=== PATIENT | male | born 1990 | race Caucasian/White ===

== ENCOUNTER 2016-11-02 19:28 | Emergency (ER) | payer OTHER ==
[~2016-11-02] VITALS: Ht 182.8 cm; Wt 93.0 kg
[~2016-11-02 19:28] MED LIST: ALBUTEROL0.09 MG/A2 IH; ASPIRIN ADULT L81 M2 PO; ATIVAN1 MG PO; ATORVASTATIN CA80 M1 PO; CYCLOBENZAPRINE10 MG PO; DEXTROAMPH SACC10 M1 PO; GINKGO BILOBA60 M3 PO; GINSENG520 MG PO; KEFLEX500 M1 PO; KELP1 TAB PO; LEVOFLOXACIN500 MG PO; LORAZEPAM0.5 MG PO; MACA PO; MOTRIN800 MG PO; NAPROSYN500 MG PO; PROBIOTIC PO; PYRIDIUM200 M1 PO; TYLENOL ES500 MG PO; ULTRAM50 MG PO; VITAMIN B PO; VITAMIN D3; VITAMINB12; VITAMIND3; [UNRECOGNIZED DRUG - OTHER] PO
[2016-11-02 19:30] VITALS: BP 160/64
[2016-11-02] MEDS ORDERED: ATIVAN0.5 MG PO (19:35)
== END 2016-11-02 22:25 | disposition home or self-care (01) ==
LOC: ED 19:28
DX: F45.8 Other somatoform disorders (principal); F41.9 Anxiety disorder, unspecified; I48.91 Unspecified atrial fibrillation; Z90.89 Acquired absence of other organs; Z86.2 Personal history of diseases of the blood and blood-forming organs and certain disorders involving the immune mechanism

== ENCOUNTER → 2018-04-02 | Outpatient (CLI) | payer OTHER ==
[~2018-04-02] MED LIST changes: +ATIVAN0.5 MG PO
[2018-04-02 10:58] LABS: HEMATOCRIT 44.7 % (42.0-52.0); HEMOGLOBIN 15.5 g/dl (14.0-18.0); MEAN CELL VOLUME 88.9 fl (80.0-94.0); MEAN CORPUSCULAR HGB 30.8 pg (27.0-31.0); MEAN CORPUSCULAR HGB CONC 34.7 g/dl (33.0-37.0); MEAN PLATELET VOLUME 12.6 fl (9.6-12.3); RED BLOOD COUNT 5.03 10*6/uL (4.50-5.90); RED CELL DISTRI WIDTH 11.9 % (0-14.5); WHITE BLOOD COUNT 5.2 10*3/uL (4.8-10.8)
[2018-04-02 11:23] LABS: ALBUMIN 4.7 gm/dl (3.1-4.5); ALKALINE PHOSPHATASE 68 U/L (45-117); BUN 15 mg/dl (7-24); CHLORIDE 105 mmol/L (98-107); SGOT/AST 16 IU/L (3-35); SGPT/ALT 26 U/L (12-78); SODIUM 141 mmol/L (136-145); TOTAL PROTEIN 7.8 gm/dL (6.4-8.2)
[2018-04-03 08:11] LABS: HEPATITIS B SURFACE AB 006395 Non Reactive (.); HEPATITIS B SURFACE AG Negative (Negative); HEPATITIS C VIRUS ANTIBODY <0.1 s/co (0.0-0.9)
[2018-04-03 16:08] LABS: RUBEOLA AB IGG 096560 <25.0 AU/mL (Immune >29.9); VARICELLA-ZOSTER IGG 096206 542 index (Immune >165)
== END | disposition home or self-care (01) ==
LOC: LAB 10:32
PROVIDERS: Family Medicine
DX: Z02.1 Encounter for pre-employment examination (principal)

== ENCOUNTER 2018-08-22 21:00 | Inpatient (IN) | payer SELFPAY ==
[~2018-08-22] VITALS: Ht 182.8 cm; Wt 96.2 kg
--- NOTE | ~2018-08-22 | PR ---
[place], [place] PROGRESS NOTE [facility]: [facility]INGS [id number] UNIT #: [id number] ROOM: 406 DOCTOR: SLOAN POPE MD BIRTHDATE: [birth year] DOS: 08/24/2018 CARDIOLOGY PROGRESS NOTE The patient was seen at his bedside today 08/24/2018 for followup of an electrocardiographic abnormality. SUBJECTIVE: The patient is a 27-year-old man who had atrial fibrillation as a pre-teen and did undergo 2 ablations. I saw him when he presented to the hospital in 2016 with palpitations and chest pain. His electrocardiogram was normal, but his troponin was elevated. A stress test and echo were both normal. It was felt that he had a mild myocarditis that resolved spontaneously. He presents to the hospital on this occasion with a viral syndrome including nausea and vomiting. At this time, his troponins are normal, but his EKG did show significant nonspecific ST and T-wave changes, which were not present 2 years ago. The patient states that he does feel much better today. He is almost back to baseline. He has no further nausea or vomiting. PHYSICAL EXAMINATION: VITAL SIGNS: His pulse is 60 and regular, blood pressure is 112/56. He is afebrile. NECK: Supple. He has no jugular distention. Carotids are full. LUNGS: Respirations are unlabored. Chest is clear. HEART: Has a regular rhythm without murmur, rub or gallop. ABDOMEN: Benign. EXTREMITIES: Showed no edema. He was undergoing an echocardiogram when I walked into the room. My preliminary look at the echo showed normal left ventricular size and wall motion with normal ejection fraction. There is no significant pericardial effusion present. Sed rate is 16. A repeat EKG done yesterday showed sinus rhythm and was a normal study. The ST and T-wave changes present on admission had resolved. IMPRESSION: 1. Abnormal electrocardiogram. This was probably due to hyperventilation, vomiting, etc. It has resolved quickly. 2. History of probable myocarditis in 2016. The patient shows signs of complete recovery. 3. History of atrial fibrillation as a young teenager. The patient is status post ablation x 2. He does experience palpitations, but his heart monitor here in the hospital has been free of any significant arrhythmias aside from sinus bradycardia. 4. Family history of dilated cardiomyopathy. The patient's current echo shows normal left ventricular size, wall motion and function. [place], [place] PROGRESS NOTE NAME: MODESTA CUMMINGS JR UNIT #: [id number] ROOM: 406 DOCTOR: TOSHIA VEGA,SLOAN BIRTHDATE: [birth year] PLAN: I will review the echocardiogram in more detail once it is available. Assuming no surprises, I think he can be discharged to home with conservative management for his viral symptoms and no other cardiac workup. I thank the hospitalist physicians for asking our advice regarding his care. SLOAN POPE MD CM:PNTRANS [id number] SLOAN POPE MD 08/24/18 1026 interface
--- NOTE | ~2018-08-22 | EKG ---
[place], [place] ELECTROCARDIOGRAM REPORT NAME: MODESTA CUMMINGS JR UNIT #: [id number] ROOM: 406 DOCTOR: ART DRAFT REPORT BIRTHDATE: [birth year] [facility] Test Date: 2018-08-23 Test Time: 14:59:05 Pat Name: MODESTA CUMMINGS Department: Room: 406 2 Gender: M Auto Hiker: Federica Samano : 1990 Requested By: NORY VALDIVIA Order Number: [id number] Reading MD: Skyler Ziegler MD Measurements Intervals [place] Rate: 70 P: 44 HI: 131 QRS: 68 QRSD: 99 T: 26 QT: 429 QTc: 463 Interpretive Statements Sinus rhythm Compared to previous tracing, ST-T changes have resolved Electronically Signed On 08-24-2018 10:13:17 PDT by Skyler Ziegler MD CM:EKGRPT:ELECTROCARDIOGRAM REPORT 1459 1013 NORY ALEXANDER DRAFT REPORT NORY VALDIVIA DO
--- NOTE | ~2018-08-22 | CON ---
[employer], [place] REPORT OF CONSULTATION NAME: MODESTA CUMMINGS JR UNIT #: [id number] ROOM: 406 DOCTOR: SLOAN POPE MD BIRTHDATE: [birth year] DOS: 08/23/2018 CARDIOLOGY CONSULTATION REASON FOR CONSULTATION: Abnormal EKG. HISTORY OF PRESENT ILLNESS: The patient is a 27-year-old man who has a history of paroxysmal atrial fibrillation as a young teenager. He initially presented with fainting spells at age 16. He was evaluated at the [facility] where he was found to have paroxysmal atrial fibrillation. He did undergo cryoablation at age 17, but had recurrent atrial arrhythmias and therefore underwent a second ablation at age 18. He was treated with anticoagulants for a short-term, but these were stopped before he was 19 years of age. He was doing well until 11/2015 when he began having brief episodes of palpitations which were small resolved spontaneously. He also had a few episodes of chest pain. He did have an elevation in his troponin, but did not have a pattern that suggested an acute myocardial infarction. An echocardiogram showed normal left ventricular size and function and an exercise stress test showed no evidence for ischemia. He did have excellent exercise capacity. He was lost to our followup until now. He presented to the hospital with a 2-day history of feverishness, headache, nausea and vomiting of clear fluid. He did have some palpitations, but denied any sustained arrhythmias or syncope. He came into the hospital where an electrocardiogram was done and showed T-wave inversions in leads II, III, aVF and V3 through V6. When compared to the tracings that he had had in 12/2015, these EKG changes were all new and therefore he was hospitalized. It is interesting to note, however, that on this admission, his troponin levels are all normal. Chest x-ray is unremarkable. PAST MEDICAL HISTORY: Includes: 1. Atrial fibrillation documented at age 16, patient underwent ablations at age 17 and 18. He has not been on anticoagulants since age 19. 2. No history of diabetes, hypertension, myocardial infarction or stroke. 3. Former smoker, the patient quit about 4 years ago. 4. Echocardiogram 12/19/2015, normal left ventricular size, regional wall motion and systolic function with mild concentric left ventricular hypertrophy. No significant valve abnormality. 5. Exercise stress test 12/20/2015, 13 minutes 30 seconds Daniel protocol to 90% maximum predicted heart rate. No arrhythmias or ischemia. Nuclear perfusion imaging study showed ejection fraction of 65% and normal perfusion. 6. Holter monitor 01/08/2016, sinus rhythm with occasional PACs, but no SVT or VT and no ventricular arrhythmias. 7. Hospitalization 11/2015 with palpitations. The patient did have an elevation of troponin, but no other evidence for acute myocardial infarction. It was felt that he might have had a myocarditis which resolved. REVIEW OF SYSTEMS: The patient denies diplopia, loss of vision. He denies focal weakness. Denies lightheadedness or syncope. He does still feel tired and weak, but states that he feels a lot better than he did in the last 24 hours. He denies any nausea or vomiting at this time. He denies hemoptysis or hematemesis. He denies any recent weight change. He denies any focal weakness. [employer], [place] REPORT OF CONSULTATION NAME: EMILIANO HAIDERMODESTA Tejas UNIT #: [id number] ROOM: [facility] DOCTOR: SLOAN POPE MD BIRTHDATE: [birth year] He denies change in bowel or bladder habits. Denies blood in the stools or urine. He denies peripheral edema, orthopnea or PND. He denies heat or cold intolerance and denies polyuria or polydipsia. Remainder of the review of systems is negative except as noted above. FAMILY HISTORY: Several family members have had atrial fibrillation and one uncle had a cardiomyopathy along with his atrial fibrillation. The uncle from this. The patient is unclear as to what his cardiomyopathy was. MEDICATIONS PRIOR TO ADMISSION: Lorazepam 0.5 mg t.i.d. p.r.n. anxiety. ALLERGIES: The patient has no known drug allergies. 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 He does not smoke or consume significant amounts of alcohol. PHYSICAL EXAMINATION: GENERAL: The patient is a well-nourished white male who is awake, alert and oriented. VITAL SIGNS: Pulse is 65 and regular, blood pressure is 123/71. He is afebrile. He weighs 96.2 kg and has a body mass index of 28.8. HEENT: Normocephalic and atraumatic. Extraocular muscles are intact. Sclerae are clear. Pupils equal, round and react to light. The oral mucosa is moist. Tongue is midline. NECK: Supple. He has no jugular distention. Carotids are full and I heard no bruits. He had no neck or supraclavicular masses and no thyromegaly. LUNGS: Respirations are unlabored. His chest is clear to auscultation and percussion. He has no presacral edema or chest wall tenderness. HEART: Regular rhythm. He had a fourth heart sound, but no third heart sound. There was no murmur, rub or arrhythmia noted. The PMI was not displaced and there was no precordial heave, lift or thrill. ABDOMEN: Soft and normally active without masses, organomegaly or bruits. EXTREMITIES: Showed no edema. Pedal pulses are easily palpated bilaterally. There are no palpable cords and no Homans sign. LABORATORY DATA: I reviewed his electrocardiogram which showed sinus rhythm with inferior and lateral T-wave inversions which are new compared to 2016. Hemoglobin is 12.9, white count 11,500, platelet count 120,000. Sodium 137, potassium 4.2, chloride 106, CO2 is 24, BUN 11, creatinine 1.06. Total cholesterol 88, LDL 29, HDL 47, TSH 0.781. IMPRESSION: 1. Abnormal electrocardiogram. Etiology of this is not clear. The patient has a normal troponin level and normal electrolytes. He does not complain of chest pain, but he does seem to be recovering from a viral syndrome. 2. History of probable myocarditis in 2016 from which the patient recovered. 3. History of atrial fibrillation as a young teenager. The patient is status post ablation x 2. 4. Family history of dilated cardiomyopathy. The patient's uncle succumbed to [employer], [place] REPORT OF CONSULTATION NAME: EMILIANO MODESTA UNIT #: [id number] ROOM: 406 DOCTOR: SLOAN POPE MD BIRTHDATE: [birth year] this. PLAN: We will continue to monitor the patient. We will check a sed rate and another electrocardiogram in the morning. I would recommend doing a respiratory virus panel. We will review an echocardiogram when it is available. Further recommendations will depend upon the results of these observations, but for now, I would treat him conservatively. I thank the hospitalist physicians for asking our advice regarding his care. SLOAN POPE MD CM:CONSTR:REPORT OF CONSULTATION 1443 08/24/18 0306 interface
--- NOTE | ~2018-08-22 | EKG ---
[place], [place] ELECTROCARDIOGRAM REPORT NAME: MODESTA CUMMINGS JR UNIT #: [id number] ROOM: 406 DOCTOR: ART DRAFT REPORT BIRTHDATE: [birth year] [facility] Test Date: 2018-08-22 Test Time: 21:42:36 Pat Name: MODESTA CUMMINGS Department: ER Room: 406 Gender: M Conveyor Feeder Offbearer: E[place] : 1990 Requested By: DAVONTE MAYEN PA-C Order Number: [id number] Reading MD: Skyler Ziegler MD Measurements Intervals [place] Rate: 79 P: 42 OK: 138 QRS: 70 QRSD: 99 T: -24 QT: 346 QTc: 397 Interpretive Statements Sinus arrhythmia Nonspecific repol abnormality, inferior leads Baseline wander in lead(s) V4,V5,V6 Electronically Signed On 08-24-2018 10:11:25 PDT by Skyler Ziegler MD CM:EKGRPT:ELECTROCARDIOGRAM REPORT 1011 DAVONTE MAYEN PA-C EPIPHANY DRAFT REPORT DAVONTE MAYEN PA-C
[2018-08-22 21:02] VITALS: BP 110/71
[2018-08-22 21:55] LABS: BASO % 0.2 % (0.0-1.0); EOS % 0.1 % (1.0-4.0); HEMATOCRIT 36.3 % (42.0-52.0); HEMOGLOBIN 13.2 g/dl (14.0-18.0); LYMPH # 0.4 10*3/uL (1.3-4.4); LYMPH % 4.2 % (27.0-41.0); MEAN CELL VOLUME 86.4 fl (80.0-94.0); MEAN CORPUSCULAR HGB 31.4 pg (27.0-31.0); MEAN CORPUSCULAR HGB CONC 36.4 g/dl (33.0-37.0); MEAN PLATELET VOLUME 12.3 fl (9.6-12.3); MONO # 0.9 10*3/uL (0.1-1.0); MONO % 8.5 % (3.0-9.0); NEUT # 8.8 10*3/uL (2.3-7.9); NEUT % 86.5 % (47.0-73.0); PLATELET COUNT AUTOMATED 123 10*3/uL (130-400); RED CELL DISTRI WIDTH 11.8 % (0-14.5); WHITE BLOOD COUNT 10.1 10*3/uL (4.8-10.8)
[2018-08-22 22:00] VITALS: BP 108/64
[2018-08-22 22:06] LABS: ACT PARTIAL THROMBO TIME 23.7 SECONDS (20.8-31.5); INTERNATIONAL NORM RATIO 1.1 (2.0-3.5)
[2018-08-22 22:10] LABS: ALKALINE PHOSPHATASE 54 U/L (45-117); BUN 13 mg/dl (7-24); CHLORIDE 101 mmol/L (98-107); CREATININE 1.22 mg/dL (0.70-1.30); POTASSIUM 3.4 mmol/L (3.5-5.1); SGOT/AST 8 IU/L (3-35); SGPT/ALT 14 U/L (12-78); SODIUM 135 mmol/L (136-145); TOTAL PROTEIN 7.3 gm/dL (6.4-8.2)
[2018-08-22 22:12] LABS: TROPONIN I < 0.015 ng/ml (<0.045)
[2018-08-23 01:00] VITALS: BP 112/72
[2018-08-23 01:29] LABS: BILIRUBIN NEGATIVE (NEGATIVE); BLOOD NEGATIVE (NEGATIVE); CLARITY CLEAR (CLEAR); COLOR YELLOW (YELLOW); GLUCOSE NEGATIVE (NEGATIVE); KETONE NEGATIVE (NEGATIVE); LEUKO ESTERASE NEGATIVE (NEGATIVE); NITRITE NEGATIVE (NEGATIVE); PH 6.5 (5.0-9.0); SPECIFIC GRAVITY <= 1.005 (1.005-1.030); UROBILINOGEN 0.2 E.U./dl (0.2-1.0)
[2018-08-23 01:35] LABS: RBC 0-2 rbc/hpf (0-2); WBC 0-2 wbc/hpf (0-5)
[2018-08-23 02:16] VITALS: BP 110/54
[2018-08-23 03:11] LABS: HEMATOCRIT 35.3 % (42.0-52.0); HEMOGLOBIN 12.9 g/dl (14.0-18.0); MEAN CELL VOLUME 85.9 fl (80.0-94.0); MEAN CORPUSCULAR HGB 31.4 pg (27.0-31.0); MEAN CORPUSCULAR HGB CONC 36.5 g/dl (33.0-37.0); MEAN PLATELET VOLUME 11.9 fl (9.6-12.3); PLATELET COUNT AUTOMATED 120 10*3/uL (130-400); RED BLOOD COUNT 4.11 10*6/uL (4.50-5.90); RED CELL DISTRI WIDTH 11.9 % (0-14.5); WHITE BLOOD COUNT 11.5 10*3/uL (4.8-10.8)
[2018-08-23 03:23] LABS: BUN 11 mg/dl (7-24); CHLORIDE 106 mmol/L (98-107); CREATININE 1.06 mg/dL (0.70-1.30); POTASSIUM 4.2 mmol/L (3.5-5.1); SODIUM 137 mmol/L (136-145)
[2018-08-23 03:28] LABS: CHOLESTEROL 88 mg/dL (<200); HDL CHOLESTEROL 47 mg/dl (40-60); LDL CHOLESTEROL 29 mg/dL (9-159); PHOSPHOROUS 1.6 mg/dL (2.5-4.9); TRIGLYCERIDES 58 mg/dl (<150); VLDL CHOLESTEROL 12 mg/dL (6-40)
[2018-08-23 03:33] LABS: PLATELET SUFFICIENCY LOW (NORMAL); TOTAL CELLS COUNTED 100 #CELLS
[2018-08-23 03:34] LABS: THYROID STIM HORMONE (HS) 0.781 uIU/ml (0.358-4.75)
[2018-08-23 07:01] LABS: VITAMIN D, 25-HYDROXY 17.5 ng/mL (30-100)
[2018-08-23 09:23] VITALS: BP 118/60
[2018-08-23 11:55] VITALS: BP 123/71
[2018-08-23 16:00] VITALS: BP 126/63
[2018-08-23 20:00] VITALS: BP 123/62
[2018-08-24] VITALS: BP 125/61
[2018-08-24 06:45] LABS: BASO % 0.1 % (0.0-1.0); HEMOGLOBIN 12.4 g/dl (14.0-18.0); LYMPH # 0.8 10*3/uL (1.3-4.4); LYMPH % 6.3 % (27.0-41.0); MEAN CELL VOLUME 88.2 fl (80.0-94.0); MEAN CORPUSCULAR HGB 30.4 pg (27.0-31.0); MEAN CORPUSCULAR HGB CONC 34.4 g/dl (33.0-37.0); MEAN PLATELET VOLUME 12.2 fl (9.6-12.3); MONO # 0.8 10*3/uL (0.1-1.0); MONO % 6.1 % (3.0-9.0); NEUT # 10.7 10*3/uL (2.3-7.9); NEUT % 86.7 % (47.0-73.0); PLATELET COUNT AUTOMATED 146 10*3/uL (130-400); RED BLOOD COUNT 4.08 10*6/uL (4.50-5.90); RED CELL DISTRI WIDTH 11.9 % (0-14.5); WHITE BLOOD COUNT 12.3 10*3/uL (4.8-10.8)
[2018-08-24 06:58] LABS: BUN 10 mg/dl (7-24); CHLORIDE 109 mmol/L (98-107); CREATININE 0.69 mg/dL (0.70-1.30); PHOSPHOROUS 3.5 mg/dL (2.5-4.9); POTASSIUM 4.1 mmol/L (3.5-5.1); SODIUM 142 mmol/L (136-145)
[2018-08-24 08:00] VITALS: BP 112/56
[2018-08-24 12:00] VITALS: BP 125/59
[2018-08-24] MEDS ORDERED: VITAMIN D-32000 UNIT PO (14:01)
[2018-08-25 17:06] LABS: MYCOPLASMA PNEUMONIAE IGG 1001 U/mL (0-99); MYCOPLASMA PNEUMONIAE IGG 915 U/mL (0-99); MYCOPLASMA PNEUMONIAE IGM <770 U/mL (0-769)
[2018-08-26 22:07] LABS: PARAINFLUENZA 1 CF 1:16 (Neg:<1:8); PARAINFLUENZA 2 CF Negative (Neg:<1:8); PARAINFLUENZA 3 CF 1:32 (Neg:<1:8)
== END 2018-08-24 15:39 | disposition home or self-care (01) | DRG 871 ==
LOC: ED 21:00 → EDHOLD 22:59 → 4E 22:59
PROVIDERS: Internal Medicine; Physician Assistant; Student in an Organized Health Care Education/Training Program
DX: A41.89 Other specified sepsis (principal); I40.9 Acute myocarditis, unspecified; E87.1 Hypo-osmolality and hyponatremia; B34.9 Viral infection, unspecified; R00.2 Palpitations; R51 Headache; R11.2 Nausea with vomiting, unspecified; I48.0 Paroxysmal atrial fibrillation; D64.9 Anemia, unspecified; E87.6 Hypokalemia; D69.6 Thrombocytopenia, unspecified; R73.9 Hyperglycemia, unspecified; F41.9 Anxiety disorder, unspecified; Z87.891 Personal history of nicotine dependence; Z83.49 Family history of other endocrine, nutritional and metabolic diseases; Z82.3 Family history of stroke; Z82.49 Family history of ischemic heart disease and other diseases of the circulatory system

== ENCOUNTER → 2019-11-08 | Outpatient (CLI) | payer MEDICAID ==
[~2019-11-08] MED LIST changes: +VITAMIN D-32000 UNIT PO
[2019-11-08 12:41] LABS: HEMOGLOBIN 13.9 g/dl (14.0-18.0); MEAN CELL VOLUME 88.9 fl (80.0-94.0); MEAN CORPUSCULAR HGB 30.2 pg (27.0-31.0); MEAN CORPUSCULAR HGB CONC 33.9 g/dl (33.0-37.0); MEAN PLATELET VOLUME 11.7 fl (9.6-12.3); RED BLOOD COUNT 4.61 10*6/uL (4.50-5.90); RED CELL DISTRI WIDTH 11.5 % (0-14.5); WHITE BLOOD COUNT 9.4 10*3/uL (4.8-10.8)
[2019-11-08 13:15] LABS: ALBUMIN 4.1 gm/dl (3.1-4.5); ALKALINE PHOSPHATASE 72 U/L (45-117); BUN 12 mg/dl (7-24); CHLORIDE 106 mmol/L (98-107); POTASSIUM 3.9 mmol/L (3.5-5.1); SGOT/AST 4 IU/L (3-35); SGPT/ALT 18 U/L (12-78); SODIUM 138 mmol/L (136-145); TOTAL PROTEIN 8.1 gm/dL (6.4-8.2)
[2019-11-08 13:17] LABS: CREATININE 0.98 mg/dL (0.70-1.30)
[2019-11-09 14:07] LABS: EPSTEIN-BARR VCA IGM AB <36.0 U/mL (0.0-35.9)
== END | disposition home or self-care (01) ==
LOC: LAB 11:39
PROVIDERS: Family Medicine
DX: E55.9 Vitamin D deficiency, unspecified (principal); R53.83 Other fatigue; R59.9 Enlarged lymph nodes, unspecified

== ENCOUNTER → 2021-07-07 | Outpatient (CLI) | payer OTHER ==
[2021-07-07 11:22] LABS: HEMATOCRIT 42.2 % (42.0-52.0); MEAN CELL VOLUME 88.8 fl (80.0-94.0); MEAN CORPUSCULAR HGB 30.9 pg (27.0-31.0); MEAN CORPUSCULAR HGB CONC 34.8 g/dl (33.0-37.0); MEAN PLATELET VOLUME 11.6 fl (9.6-12.3); RED BLOOD COUNT 4.75 10*6/uL (4.50-5.90); RED CELL DISTRI WIDTH 11.3 % (0-14.5); WHITE BLOOD COUNT 5.2 10*3/uL (4.8-10.8)
[2021-07-07 11:54] LABS: ALBUMIN 4.3 gm/dl (3.1-4.5); ALKALINE PHOSPHATASE 55 U/L (45-117); BUN 19 mg/dl (7-24); CHLORIDE 107 mmol/L (98-107); CHOLESTEROL 157 mg/dL (<200); FREE T4 0.96 ng/dl (0.76-1.46); LDL CHOLESTEROL 97 mg/dL (9-159); POTASSIUM 4.3 mmol/L (3.5-5.1); SGOT/AST 10 IU/L (3-35); SGPT/ALT 23 U/L (12-78); SODIUM 140 mmol/L (136-145); TOTAL PROTEIN 7.1 gm/dL (6.4-8.2); TRIGLYCERIDES 45 mg/dl (<150)
[2021-07-07 12:51] LABS: VITAMIN D, 25-HYDROXY 46.7 ng/mL (30-100)
[2021-07-11 02:06] LABS: TESTOSTERONE FREE, (DIRECT) 12.5 pg/mL (9.3-26.5)
== END | disposition home or self-care (01) ==
LOC: LAB 10:42
PROVIDERS: ATTEND Family Medicine
DX: Z00.01 Encounter for general adult medical examination with abnormal findings (principal); E55.9 Vitamin D deficiency, unspecified; R53.83 Other fatigue; I48.91 Unspecified atrial fibrillation

== ENCOUNTER 2021-07-29 14:13 | Emergency (ER) | payer OTHER ==
[~2021-07-29] VITALS: Ht 182.8 cm; Wt 97.5 kg
[2021-07-29 14:49] VITALS: BP 127/83
[2021-07-29 16:20] LABS: BASO % 0.4 % (0.0-1.0); EOS # 0.3 10*3/uL (0.0-0.4); EOS % 3.6 % (1.0-4.0); HEMATOCRIT 40.2 % (42.0-52.0); LYMPH # 1.2 10*3/uL (1.3-4.4); LYMPH % 14.9 % (27.0-41.0); MEAN CELL VOLUME 86.8 fl (80.0-94.0); MEAN CORPUSCULAR HGB 30.2 pg (27.0-31.0); MEAN CORPUSCULAR HGB CONC 34.8 g/dl (33.0-37.0); MONO # 0.6 10*3/uL (0.1-1.0); MONO % 7.6 % (3.0-9.0); NEUT # 5.9 10*3/uL (2.3-7.9); NEUT % 72.6 % (47.0-73.0); PLATELET COUNT AUTOMATED 222 10*3/uL (130-400); RED BLOOD COUNT 4.63 10*6/uL (4.50-5.90); RED CELL DISTRI WIDTH 10.9 % (0-14.5); WHITE BLOOD COUNT 8.1 10*3/uL (4.8-10.8)
[2021-07-29 16:37] LABS: BUN 13 mg/dl (7-24); CHLORIDE 105 mmol/L (98-107); CREATININE 0.99 mg/dL (0.70-1.30); POTASSIUM 4.2 mmol/L (3.5-5.1); SODIUM 139 mmol/L (136-145)
== END 2021-07-29 18:03 | disposition home or self-care (01) ==
LOC: ED 14:13
PROVIDERS: Internal Medicine
DX: B34.9 Viral infection, unspecified (principal); Z20.822 Contact with and (suspected) exposure to COVID-19; R42 Dizziness and giddiness; Z79.899 Other long term (current) drug therapy; Z90.89 Acquired absence of other organs; Z87.891 Personal history of nicotine dependence

== ENCOUNTER → 2023-05-21 | Outpatient (CLI) | payer OTHER ==
[2023-05-21 09:28] LABS: HEMATOCRIT 44.1 % (42.0-52.0); MEAN CELL VOLUME 85.8 fl (80.0-94.0); MEAN CORPUSCULAR HGB 30.9 pg (27.0-31.0); MEAN CORPUSCULAR HGB CONC 36.1 g/dl (33.0-37.0); RED BLOOD COUNT 5.14 10*6/uL (4.50-5.90); RED CELL DISTRI WIDTH 11.6 % (0-14.5); WHITE BLOOD COUNT 6.2 10*3/uL (4.8-10.8)
[2023-05-21 10:05] LABS: ALKALINE PHOSPHATASE 68 U/L (46-116); BUN 15 mg/dl (9-23); CHLORIDE 103 mmol/L (98-107); CHOLESTEROL 140 mg/dL (<200); FREE T4 1.19 ng/dl (0.89-1.76); LDL CHOLESTEROL 82 mg/dL (9-159); SGPT/ALT 18 U/L (10-49); TOTAL PROTEIN 7.4 gm/dL (6.0-8.0); TRIGLYCERIDES 64 mg/dl (<150)
[2023-05-21 10:46] LABS: VITAMIN D, 25-HYDROXY 77.4 ng/mL (30-100)
== END | disposition home or self-care (01) ==
LOC: LAB 08:36
PROVIDERS: ATTEND Family Medicine
DX: Z00.00 Encounter for general adult medical examination without abnormal findings (principal); Z13.220 Encounter for screening for lipoid disorders; E55.9 Vitamin D deficiency, unspecified; E03.9 Hypothyroidism, unspecified; R53.83 Other fatigue; I25.10 Atherosclerotic heart disease of native coronary artery without angina pectoris